=== PATIENT | female | born 1945 | race Caucasian/White ===

== ENCOUNTER 2024-10-29 10:18 | Outpatient (REF) | payer MEDICARE, MEDICAID, SELFPAY ==
--- NOTE | ~2024-10-29 | FL_ITS ---
EXAMINATION: MODIFIED BARIUM SWALLOW. Difficulty swallowing . History of stroke COMPARISON: None available. TECHNIQUE: Modified barium swallow was performed in lateral fluoroscopy with patient in a wheelchair and oral administration of various consistencies of barium in presence of speech therapist. FINDINGS: Following oral administration of thick barium, semisolid food with barium, solid food with barium there is normal propagation bolus from the oral cavity through the pharynx and esophagus. No obstruction seen. No laryngeal penetration and aspiration. No retention of food in the valleculae or piriform sinuses. FLUOROSCOPY TIME: 56 seconds DOSE AREA PRODUCT: 738.9 uGy-m2 (microgray-meter squared) FL/FL Modified Barium Swallow IMPRESSION: UNREMARKABLE MODIFIED BARIUM SWALLOW EXAMINATION. Electronically signed by: Anthony Patrick MD 10/29/2024 01:40 PM EDT
--- OUTSIDE RECORDS SUMMARY | 2024-10-29 12:32 | XMS_ITS | Clinical Summary ---
Author Organization [facility] Address [address] [place] [phone] Phone Care Team Providers Care Mechanical Tech Name Role Phone Unavailable Primary Care Provider Unavailabl e Social History Tobacco Use Types Packs/Day Years Used Date Smoking Tobacco: Never Assessed Education Answer Date Recorded Are you interested in more education? Not on [place] e 09/03/2023 Are you concerned about learning? Not on file 09/03/2023 No 09/03/2023 No 09/03/2023 Digital Access Answer Date Recorded No 09/03/2023 No 09/03/2023 Reliable internet access at home? Not on file 09/03/2023 Device with a working camera? Not on file Comments Unknown Sex and Gender Information Value Date Recorded Sex Assigned at Not on file Legal Sex Female 11:20 AM EDT Gender Identity Not on file Sexual Orientation Not on file Plan of Treatment Not on file Medical Devices Not on file Additional Source Comments The information contained in this document represents components of the legal health record. It is not the complete legal health record.[facility]
--- NOTE | 2024-10-30 07:54 | MHC.SL.MBSTD ---
Referring provider: Dr. Kannan Rendon Reason for Referral: Difficulty Swallowing Type of Treatment: 88096 Modified Barium Swallow Study Date of Plan of Treatment: 10/29/24 Onset of Symptoms/Illness: 09/10/24 Date Treatment Started: 10/29/24 Medical Diagnosis: Difficulty Swallowing, Hx CVA -DOO: 08/19/2021 Speech & Language Primary Diagnosis:R13.12 Oropharyngeal Phase Dysphagia Speech & Language Secondary Diagnosis: R47.01 Aphasia Comments: Keri Zhang is a 79 year old woman who was referred for a Modified Barium Swallow by her PCP Dr. Rendon per her daughter's concern that she was having difficulty with swallowing. Her daughter, who accompanied Keri to the procedure, reported that Keri had a stroke in 2021, and had residual swallowing difficulty which she believed was declining further recently. She reported the primary issue is thin liquids, with her mother having episodes of coughing when drinking. Keri presented as wheelchair dependent for ambulation, appeared to have right sided weakness/hemiplegia, and had communication impairment, all likely related to her stroke. Keri was asked questions about her needs, but she was unable to respond, and produced minimal speech during the evaluation. She was further noted to have mild difficulty following simple directions. Keri is dependent for feeding, and her daughter reported she drinks liquids with a straw. Daughter further reported that Keri had pneumonia in the summer of 2023, but believed it was viral. Medical History: HLD, Osteoporosis, Obesity, closed left shoulder dislocation, Paroxymal Atrial Fibrillation, Generalized edema, CVA (03/09/22), hemiplegia Medication List: Please see medical chart Recent Hospitalizations: No Respiratory Needs: Room Air Patient Orientation: Unable to Assess Areas of Difficulties: Swallowing Goal of Speech-Language Therapy: Assess swallow function by MBSS Prognosis for Improvment: Good Dysphagia Related: Oralpharyngeal Dysphagia Comments: Per daughter's report, Keri is coughing at times when drinking liquids. Daughter has notices this behavior increasing recently. Keri is dependent for feeding due to her limited upper extremity movement post CVA. Daughter reported no current modifications to a regular diet for Keri. Risk for Aspiration: Neurological Condition, History of Pneumonia Current Dietary Consistencies: Regular Current Liquid Intake Consistencies: Thin Current Medication Administration Method: Whole with Liquid Voice Phonatory-based Quality: Normal Voice Pitch: Normal Voice Loudness: Normal Assessment Oral Motor Exam: Facial Symmetry: Symmetrical Facial Movement: Controlled Oral-Facial Facial Miscellaneous Observations: Patient presents with symmetrical facial features, however face is somewhat mask-like /mildy flaccid appearing. Mouth Occlusion: Normal Oral-Facial Teeth Characteristics: Intact/Normal Oral-Facial Teeth Miscellaneous Observation: ?Patient most of her natural teeth with dental implant evident on XR.? Oral-Facial Lip Pucker Description: Normal Oral-Facial Smile (Lips) Description: Normal Tongue Size: Normal Tongue Frenum Length: Normal Tongue Excursion Description: Incomplete Tongue Range of Movement Description: Reduced Tongue Speed of Movement Description: Reduced Tongue Strength of Movement (against opposing pressure): Reduced Tongue Movement Characteristics: Normal/Absent Tongue Movement Miscellaneous Observation: lingual ROM/strength reduced laterally with slower movement on direction noted. ? Is patient able to manage secretions?: Yes ? Is patient able to produce volitional cough?: Yes Clinicial Observations: MBSS was performed by the radiologist and the speech pathologist. Patient was sitting in a wheelchair for lateral view only. She required assistance with feeding and trialed the following consistencies: -thin liquid via individual cup sips -pureed solid (mixture applesauce w/ barium pudding) -regular solid (Shortbread cookie w/ barium pudding) Oral Phase: On controlled cup sip of thin liquid, there was poor anterior containment of the bolus with premature spillage to the vallecula; on puree consistency, there partial escape of the bolus to the floor of the mouth with recollection during A/P transit, slow, lingual mashing (on hard palate) of bolus during a/p transit, and premature spillage to the vallecula; On Regular solid, rotary chew was absent, patient used a a munching pattern with tongue pumping during oral preparation of the bolus, with premature spillage over tongue base to the vallecula. On all conditions, there was trace amounts of residual on oral structures after swallow Pharyngeal Phase: On thin liquid, swallow was initiated when the head of the bolus was in the pyriform sinus. On thin liquid, there was partial inversion of the epiglottis, with partial superior movement of the thyroid cartilage with partial approximation of the arytnoids at the height of the swallow. On puree and solid, swallow was initiated when the bolus head was at the posterior laryngeal surface of the epiglottis, with full inversion of the epiglottis and full superior movement of the thyroid cartilage and laryngeal vestibular closure. On all conditions there was complete laryngeal clearance with no residue after swallow. Pharyngeal stripping wave was present on swallow. There was no laryngeal penetration or aspiration below the vocal folds observed on any swallow during the study. Modified Barium Swallow Study: Oral Phase: Impaired Thin Liquid via Cup ? Labial Seal: WFL ? A/P Transit: WFL ? Lingual Movement: WFL ? Rotary Mastication: n/a ? Premature Spillage: Impaired ? Oral Residue: nild Pureed Food ? Labial Seal: WFL ? A/P Transit: Delayed ? Lingual Movement: Impaired ? Rotary Mastication: Impaired ? Premature Spillage: Impaired ? Oral Residue: Mild Regular/Unaltered ? Labial Seal: WFL ? A/P Transit: Delayed ? Lingual Movement: Impaired ? Rotary Mastication: Impaired ? Premature Spillage: Impaired ? Oral Residue: Mild Pharyngeal Phase: Intact Thin Liquid via cup ? Velopharyngeal Closure: Intact ? Tongue Base Retraction: Intact ? Laryngeal Excursion: Reduced ? Epiglottal Deflection: Reduced ? Pharyngeal Peristalsis: Intact ? Valleculae Clearing: Intact ? Pyriform Clearing: Intact ? UES Opening: Intact ? Penetration: Not present ? Aspiration: Not present Pureed Food ? Velopharyngeal Closure: Intact ? Tongue Base Retraction: Intact ? Laryngeal Excursion: Intact ? Epiglottal Deflection: Intact ? Pharyngeal Peristalsis: Intact ? Valleculae Clearing: Intact ? Pyriform Clearing: Intact ? UES Opening: Intact ? Penetration: Not present ? Aspiration: Not present Regular ? Velopharyngeal Closure: Intact ? Tongue Base Retraction: Intact ? Laryngeal Excursion: Intact ? Epiglottal Deflection: Intact ? Pharyngeal Peristalsis: Intact ? Valleculae Clearing: Intact ? Pyriform Clearing: Intact ? UES Opening: Intact ? Penetration: Not present ? Aspiration: Not present ? UES Opening: ? Penetration: ? Aspiration: Impressions and Recommendations Summary: Keri presented today with moderate oral phase dysphagia and milder laryngeal phase dysphagia (which was evident primarily when swallowing thin liquid consistency). There was no instance of either laryngeal penetration or aspiration on today's study. Keri's oral phase is likely secondary to residual oral motor impairment from her stroke four years ago. oral movement during swallow is slow with reduced coordination of movement of the oral structures during oral transit of food boluses, and poor containment of the bolus prior to initiation of swallow. On liquids, laryngeal phase of swallow evidences mildly reduced elevation of the larynx and partial inversion of epiglottis on swallow. These conditions improved when swallowing solid foods. In all conditions, Keri had complete clearance of the pharynx with no residue or retention of food or liquid after swallow. It is recommended that Keri continue on her regular diet with thin liquids with a few accommodations/strategies: Use of a straw when drinking is discouraged; recommend small, individual sips by cup. Recommend electing moister softer foods present in a regular diet, and avoid tough, difficult to chew solids. Further direct intervention or therapy is not indicated at this time. Patient Education Completed: Yes Patient/Caregiver Education: Described Results of Evaluation Patient expressed understanding of evaluation Patient agrees with goals and treatment plan Family/Caregivers expressed understanding of results Family/Caregivers expressed agreement with goals and treatment plan Comment: Comments/Barriers to Learning: Oracle Fusion Developer Clinican/Clinical Fellow: No Supervisory Statement: N/A Speech Language Pathologist: Isadora Espinosa M.A., CCC-BREAKFAST MANAGER
== END 2024-10-29 10:19 | disposition home or self-care (01) ==
LOC: HO.XRAY 10:18
PROVIDERS: PCP Internal Medicine; Visit Provider Internal Medicine
DX: R13.10 Dysphagia, unspecified (principal)
CPT/HCPCS: 74230; 92611

== ENCOUNTER → 2024-10-29 10:37 | Outpatient (BNV) | payer MEDICARE, MEDICAID, SELFPAY | PROVIDERS: PCP Internal Medicine; Visit Provider Radiology Diagnostic Radiology | DX: R13.10 Dysphagia, unspecified (principal) | CPT/HCPCS: 74230 ==